=== PATIENT | female | born 1995 | race Caucasian/White ===

== ENCOUNTER 2018-11-07 17:11 | Inpatient (IN) | payer MEDICAID ==
[~2018-11-07] VITALS: Ht 149.9 cm; Wt 61.2 kg
[2018-11-07 18:00] VITALS: BP 97/55; PULSE 75; RESP 18
[2018-11-07] MEDS ORDERED: PREN-93 PO (18:00)
[2018-11-07 18:01] VITALS: Ht 149.9 cm; Wt 61.2 kg
--- NOTE | 2018-11-07 22:13 | HP ---
Date/Time of Note Date/Time of Note DATE: 11/07/18 TIME: 22:08 OB - History Hx of Present Free Text/Dictation 32 years old 3 para 2-0-0-2 with single intrauterine at 35 weeks and 2 days with a DOMINIQUE of 12/10/2018 referred the for further evaluation due to size less than date. She states good movement. She denies nausea, vomiting, shortness of breath, chest pain, headache, visual changes, vaginal bleeding or LOF. Estimated Due Date: Dec 10, 2018 : 3 Para: 2 Spontaneous : 0 Therapeutic : 0 Care: Good Care Ultrasounds: Normal mid trimester US Obstetrical Complications: None Medical Complications: None Past Family/Social History * Past Medical, Surgical, Family and Obstetric Histories reviewed from chart. Blood Type: O+ Rubella: immune RPR/VDRL: Negative HBsAG: Negative OB Admission Exam Vital Signs Vital Signs Vital Signs Date Temp Pulse Resp B/P (MAP) Pulse Ox O2 O2 Flow FiO2 Time Delivery Rate 11/07/18 98.5 75 18 97/55 (69) Room Air 18:00 Physical Exam HEENT: WNL Heart: Rhythm Normal Lungs: Clear Abdomen: WNL Extremities: Normal Membranes: Intact Heart Rate: 130's Accelerations: Accelerations Present Decelerations: No Decelerations Varibility: Moderate Contractions on Admission: None OB Assessment/Plan Other plan: 22 years old 3 para 2-0-0-2 with single intrauterine at 35 weeks and 2 days with IUGR. -FHR: No sign of metabolic acidosis- Category I -Continuous EFM, toco -CBC, blood type and screen -Ultrasound performed, EFW 2094 g -4 pounds 10 ounces, 5% -Betamethasone for lung maturity per protocol -Please see the orders -O+/Rubella: Immune -GBS done today -Perinatology consult MAHIN GONZALES Nov 07, 2018 22:13
[2018-11-07] MEDS ORDERED: ACETAMINOPHEN 325 MG TAB PO PRN (23:30)
--- NOTE | 2018-11-07 23:38 | TRIAGE ---
OB Triage Datetime Report Generated by CPN: 11/07/2018 23:38 Datetime: 11/07/2018 23:27 Labor Evaluation Monitor Mode: External Heart Rate Monitor Mode: External US Datetime: 11/07/2018 23:18 Pain Assessment Pain Scale: 0 Pain Presence: None/Denies Pain Type: N/A Datetime: 11/07/2018 22:22 Vaginal Exam Membrane Status: Intact Datetime: 11/07/2018 19:36 Pain Assessment Pain Scale: 0 Pain Presence: None/Denies Pain Type: N/A Datetime: 11/07/2018 19:07 EGA: 35.2 Datetime: 11/07/2018 17:51 Time of Arrival: 11/07/2018 17:01 EGA: 35.2 Arrived By: Ambulatory Arrived From: Office Chief Complaint: PT. SENT FROM CLINIC FOR SIZE<DATES Movement: Present Contractions: Denies/Absent Rupture of Membranes: Denies Vaginal Bleeding: None Vaginal Discharge: Denies Recent Sexual Intercouse: Denies Abdominal Trauma: Not Applicable Patient Complaints: None Time Provider Notified: 11/07/2018 17:55 Provider Notified: HADADIAN Initial Plan: BPP/EFW/NST Datetime: 11/07/2018 17:45 Labor Evaluation Monitor Mode: External Heart Rate Monitor Mode: External US
[2018-11-08] MEDS: BETAMET NA PHOS/AC(6 MG/ML) 2 ML INJ SYG IM SCH (01:38)
[2018-11-08] MEDS ORDERED: FER325 PO (01:54)
[2018-11-08] MEDS: DOCUSATE SODIUM 100 MG CAP PO SCH (09:05)
[2018-11-08] MEDS: PRENATAL VITAMIN PO SCH (09:05)
--- NOTE | 2018-11-08 15:29 | QN ---
Documentation Comment Patient admitted last night due to IUGR for perinatology consultation. Es timated weight less less than 5%. Doppler done. Diastolic flow noted. Umbilical artery Doppler reported normal. Patient status post betamethasone x1 next dose today at 130. Today patient reports mild pain with urination as well as itching. No leaking of fluid no vaginal bleeding. Urine suspicious for UTI. Urine was sent for culture and sensitivity. Physical examination External genitalia: No lesions in the inner side of the left labial minora multiple small in clusters appears to be consistent with genital warts. Sterile speculum examination. Frothy vaginal discharge noted. Wet mount obtained and was sent. Reported trichomonas. Abdomen: Soft, gravid, fundal height consider gestational age BPP yesterday normal. LETICIA 11.9 NST: Category 1 and appropriate for gestational age Occasional contractions noted on the monitor Assessment IUP at 35 weeks and 3 days Estimated weight less than 5 percentile Doppler of umbilical artery normal, status post 1 dose of steroid. Second dose will be completed today Awaiting perinatology consultation Genital lesions, appears consistent with Genital wart Vaginal discharge, Wet mount consistent with trichomonas Discussed in german language by RN about the abnormal lab. Discussed about treatment, consider single dose treatment. 2 Gram PO x 1 Partner advised to be tested since this is STD Urine to be sent for culture and sensitivity Advised partner been tested and gets treatment Full STD panel to be done today. JUSTINE ROMERO MD Nov 08, 2018 15:29
[2018-11-08] MEDS ORDERED: metroNIDAZOLE 500 MG TAB PO ONE (16:30)
[2018-11-08] MEDS: ACYCLOVIR 400 MG TAB PO SCH ×2 (17:14→20:53)
[2018-11-09] MEDS: BETAMET NA PHOS/AC(6 MG/ML) 2 ML INJ SYG IM SCH (01:35)
--- NOTE | 2018-11-09 02:11 | CONS ---
DATE OF ADMISSION: 11/07/2018 DATE OF CONSULTATION: 11/08/2018 TYPE OF CONSULTATION: Perinatology. HISTORY OF PRESENT ILLNESS: I am not really sure why I was consulted on this patient, but in summary , she is 35 weeks and 3 days with intrauterine growth restriction for the fetus. Also, there are radha e lesions on the vagina. Cultures for the HSV are pending. She was also diagnosed with Trichomonas. RECOMMENDATIONS: Essentially, umbilical artery Doppler now and if the heart tone is reassuring and umbilical artery is normal, she can be discharged home. She should be treated preemptively for the herpes. Follow up on her cultures and if the culture is negative, then it can be discontinued. However, if the suspicion is high I do recommend continuing with the treatment dose for the appropria te time of days and then continue with the prophylactic after her delivery. Delivery at 37 weeks. S he needs to have NST twice weekly, umbilical artery weekly, and obviously treat for Trichomonas. Dictated By: LUIS ALFREDO BELTRÁN/LANDRY Conf#: [id number] DID#: [id number]
[2018-11-09] MEDS: ACYCLOVIR 400 MG TAB PO SCH ×3 (08:48→21:05)
[2018-11-09] MEDS: DOCUSATE SODIUM 100 MG CAP PO SCH (08:48)
[2018-11-09] MEDS: PRENATAL VITAMIN PO SCH (08:49)
--- NOTE | 2018-11-09 12:36 | QN ---
Documentation Comment 34+wks GA With IUGR , NST reassuring [place] No CTXS Pelvic Deferred -->She can be discharged as per Perinatologist -->NST BPP twice weekly --->Follow up with provider JIMENA GONZALES M.D. Nov 09, 2018 12:36
--- NOTE | 2018-11-09 12:38 | DS ---
Date/Time of Note Date/Time of Note DATE: 11/09/18 TIME: 12:37 Discharge Summary Admission/Discharge Info Admit Date/Time Nov 07, 2018 at 21:55 Discharge Date/Time 11/09/2018 Discharge Diagnosis IUGR Patient Condition: Good Hospital Course uneventful Home Meds Reported Medications Ferrous Sulfate* (Ferrous Sulfate*) 325 Mg Tabec, 325 MG PO DAILY, TAB 11/08/18 Vit No.124/Iron/FA ( Vitamin Tablet) 1 Each Tablet, 1 EACH PO DAILY, TAB 11/07/18 Primary Care Provider Care Physician JIMENA Blanco M.D. Nov 09, 2018 12:37
--- NOTE | 2018-11-10 04:33 | PN ---
Date/Time of Note Date/Time of Note DATE: 11/10/18 TIME: 04:32 OB Subjective Subjective Subjective Patient seen and examined. She states good movement. She denies nausea, vomiting, shortness of breath, chest pain, abdominal pain, headache, visual changes, vaginal bleeding or LOF. OB Objective Objective Objective General: Patient appears well, alert and oriented, NAD, appropriate mood and affect ABD: gravid, soft, non-tender. Back: No CVA tenderness (B/L) LE: Mild edema. No clubbing, cyanosis, edema, thigh or calf tenderness bilaterally FHT: 135 bpm , moderate variability with acceleration, no deceleration-category I Contractions: None OB Assessment/Plan Other plan: 22 year-old G 3 para 2-0-0-2 with single intrauterine at 35 weeks and 5 days with IUGR, UTI and borderline amniotic fluid s/p receiving betamethasone x2 -FHR: No sign of metabolic acidosis- Category I. She had one deceleration yesterday at 10:30 AM, no further deceleration noted, rest of heart rate is category 1 -Continuous EFM, toco -Repeat urinalysis with 65 white BC, Ancef IV started -Ultrasound performed on 11/07/2018: EFW 2094 g -4 pounds 10 ounces, 5%, normal LETICIA and umbilical artery Doppler. Today's ultrasound with the LETICIA of 6.3. Repeat ultrasound tomorrow. -Please see the orders -O+/Rubella: Immune -Perinatology consult appreciated -Follow-up after having ultrasound today MAHIN GONZALES Nov 10, 2018 04:33
[2018-11-10] MEDS: LACTATED RINGER'S 1,000 ML IV SCH ×3 (04:45→23:03)
[2018-11-10] MEDS: CEFAZOLIN 2 GM/50 ML (PMX) 50 ML IVPB SCH ×3 (05:48→18:33)
[2018-11-10] MEDS: ACYCLOVIR 400 MG TAB PO SCH ×3 (09:20→20:58)
[2018-11-10] MEDS: PRENATAL VITAMIN PO SCH (09:20)
[2018-11-10] MEDS: DOCUSATE SODIUM 100 MG CAP PO SCH (09:20)
[2018-11-11] MEDS: CEFAZOLIN 2 GM/50 ML (PMX) 50 ML IVPB SCH ×4 (00:01→18:33)
[2018-11-11] MEDS: LACTATED RINGER'S 1,000 ML IV SCH ×3 (08:16→20:40)
[2018-11-11] MEDS: PRENATAL VITAMIN PO SCH (09:16)
[2018-11-11] MEDS: DOCUSATE SODIUM 100 MG CAP PO SCH (09:16)
[2018-11-11] MEDS: ACYCLOVIR 400 MG TAB PO SCH ×3 (09:16→21:16)
[2018-11-11] MEDS ORDERED: LIDOCAINE 2% (SDV) 5 ML INJ ONE (10:39)
--- NOTE | 2018-11-11 12:25 | QN ---
Documentation Comment 34+wks GA With IUGR , NST reassuring [place] No CTXS Pelvic Deferred -->Management as Per Private provider JIMENA GONZALES M.D. Nov 11, 2018 12:25
[2018-11-12] MEDS: CEFAZOLIN 2 GM/50 ML (PMX) 50 ML IVPB SCH ×4 (00:27→18:00)
[2018-11-12] MEDS: LACTATED RINGER'S 1,000 ML IV SCH ×3 (01:56→19:59)
[2018-11-12] MEDS: DOCUSATE SODIUM 100 MG CAP PO SCH (08:59)
[2018-11-12] MEDS: ACYCLOVIR 400 MG TAB PO SCH ×3 (08:59→20:49)
[2018-11-12] MEDS: PRENATAL VITAMIN PO SCH (08:59)
--- NOTE | 2018-11-12 14:14 | PN ---
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 No complaints. No VB. No LOF. BPP 12/06 today Assessment/plan: 1. Intrauterine growth restriction-status post corticosteroids. Doppler umbilical arteries within normal limits today. Biweekly NST/BPP. hydrate. ROM to r/o pprom. No indication for delivery. may discharge to home with repeat BPP in 24 hours if not pprom. Delivery at 37 weeks 2. HSV-primary lesion noted October 2018. HSV positive culture 11/08/18. Patient is currently receiving acyclovir. counseled in clinic that should she have any active lesions or prodromal symptoms she will need a section. 3. Urine leukocytes/esterase-urine culture 4. Anemia of -ferrous sulfate 5. h/o thrombocytopenia-cbc MILESTONE,MANSOOR VILLARREAL Nov 12, 2018 14:14
[2018-11-12] MEDS: FERROUS SULFATE (EC) 325 MG TAB PO SCH (15:10)
[2018-11-13] MEDS: CEFAZOLIN 2 GM/50 ML (PMX) 50 ML IVPB SCH ×2 (00:15→06:11)
[2018-11-13] MEDS: LACTATED RINGER'S 1,000 ML IV SCH (04:33)
[2018-11-13] MEDS: PRENATAL VITAMIN PO SCH (10:07)
[2018-11-13] MEDS: DOCUSATE SODIUM 100 MG CAP PO SCH (10:07)
[2018-11-13] MEDS: FERROUS SULFATE (EC) 325 MG TAB PO SCH (10:07)
[2018-11-13] MEDS: ACYCLOVIR 400 MG TAB PO SCH ×3 (10:07→21:34)
[2018-11-13] MEDS ORDERED: LACTATED RINGER'S 1,000 ML IV SCH (10:30)
--- NOTE | 2018-11-13 13:17 | PN ---
Date/Time of Note Date/Time of Note DATE: 11/13/18 TIME: 13:17 MAHIN GONZALES Nov 13, 2018 13:17
[2018-11-14] MEDS: FERROUS SULFATE (EC) 325 MG TAB PO SCH (08:58)
[2018-11-14] MEDS: PRENATAL VITAMIN PO SCH (08:58)
[2018-11-14] MEDS: DOCUSATE SODIUM 100 MG CAP PO SCH (08:58)
[2018-11-14] MEDS: ACYCLOVIR 400 MG TAB PO SCH ×3 (09:00→20:47)
--- NOTE | 2018-11-14 17:45 | PN ---
Date/Time of Note Date/Time of Note DATE: 11/14/18 TIME: 17:31 OB Subjective Subjective Subjective Patient seen and examined. She states good movement. She denies nausea, vomiting, shortness of breath, chest pain, abdominal pain, headache, visual changes, vaginal bleeding or LOF. OB Objective Objective Objective General: Patient appears well, alert and oriented, NAD, appropriate mood and affect ABD: gravid, soft, non-tender. Back: No CVA tenderness (B/L) LE: Mild edema. No clubbing, cyanosis, edema, thigh or calf tenderness bilaterally FHT: 125 bpm , moderate variability with acceleration, no deceleration-category I Contractions: None OB Assessment/Plan Other plan: 22 year-old G 3 para 2-0-0-2 with single intrauterine at 36 weeks and 2 days with IUGR and borderline amniotic fluid -FHR: No sign of metabolic acidosis- Category I -Continuous EFM, toco -Ultrasound performed on 11/07/2018: EFW 2094 g -4 pounds 10 ounces, 5%, normal umbilical artery Doppler. 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 HSV IgM , I and II ordered 3) BV: She was treated metronidazole 2 g x 1 4) UA with 68 white BC urine culture was positive for Gardnerella. She was treated with Ancef until we receive the results of urine culture. Ancef discontinued. Urinalysis with straight cath ordered MAHIN GONZALES Nov 14, 2018 17:45
[2018-11-15] MEDS: ACYCLOVIR 400 MG TAB PO SCH ×3 (08:31→22:00)
[2018-11-15] MEDS: FERROUS SULFATE (EC) 325 MG TAB PO SCH (08:31)
[2018-11-15] MEDS: PRENATAL VITAMIN PO SCH (08:31)
[2018-11-15] MEDS: DOCUSATE SODIUM 100 MG CAP PO SCH (08:31)
--- NOTE | 2018-11-15 14:36 | QN ---
Documentation Comment Patient comfortable. Denies any leaking of fluid, vaginal bleeding, decreased movement or uterine contractions. Physical examination: General appears alert and oriented x4 does not appear to be in any acute distress Abdomen: Soft, gravid, fundal height correlate with gestational age NST: Category 1 and appropriate for gestational age Assessment 22 year-old G 3 para 2-0-0-2 with single intrauterine at 36 weeks and 3 days with IUGR and borderline amniotic fluid -Ultrasound performed on 11/07/2018: EFW 2094 g -4 pounds 10 ounces, 5%, normal umbilical artery Doppler. 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 HSV IgM , I and II ordered, Pending 3) BV: She was treated metronidazole 2 g x 1 Follow-up with the results of HSV continue inpatient management due to borderline low oligo and IUGR, status post steroid. Plan for induction at 37 weeks Follow-up with HSV antibody, if positive consider starting on antiviral therapy, acyclovir until delivery JUSTINE ROMERO MD Nov 15, 2018 14:35
[2018-11-16] MEDS: FERROUS SULFATE (EC) 325 MG TAB PO SCH (07:56)
[2018-11-16] MEDS: ACYCLOVIR 400 MG TAB PO SCH ×3 (07:56→21:03)
[2018-11-16] MEDS: DOCUSATE SODIUM 100 MG CAP PO SCH (07:56)
[2018-11-16] MEDS: PRENATAL VITAMIN PO SCH (07:56)
--- NOTE | 2018-11-16 23:46 | QN ---
Documentation Comment 22y.o at 36w4d low LETICIA IUGR last LETICIA on 11/12/18 6.8 S/D ratio 2.4-2.8 EFW 2094 5% on ancyclovir since 11/08/18 for herpes I according to record blister on genitalis no lesion seen on visual exam today Plan deliver at 37w mode of delivery will be decided accordingly NITO ORTIZ MD Nov 16, 2018 23:46
[2018-11-17] MEDS: DOCUSATE SODIUM 100 MG CAP PO SCH (08:58)
[2018-11-17] MEDS: ACYCLOVIR 400 MG TAB PO SCH ×3 (08:58→20:56)
[2018-11-17] MEDS: PRENATAL VITAMIN PO SCH (08:58)
[2018-11-17] MEDS: FERROUS SULFATE (EC) 325 MG TAB PO SCH (08:58)
--- NOTE | 2018-11-17 13:43 | PN ---
Date/Time of Note Date/Time of Note DATE: 11/17/18 TIME: 13:40 OB Subjective Subjective Subjective Asked by RN about delivery plan. 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 Per ACOG, delivery is indicated if the patient demonstrates lesions or prodromal symptoms (burning, pain) at the time of delivery. SHANEL VYAS MD Nov 17, 2018 13:43
[2018-11-18] MEDS: DOCUSATE SODIUM 100 MG CAP PO SCH (09:24)
[2018-11-18] MEDS: ACYCLOVIR 400 MG TAB PO SCH ×3 (09:24→21:33)
[2018-11-18] MEDS: FERROUS SULFATE (EC) 325 MG TAB PO SCH (09:24)
[2018-11-18] MEDS: PRENATAL VITAMIN PO SCH (09:24)
--- NOTE | 2018-11-18 14:11 | QN ---
Documentation Comment Late entry note for 11/17/2018 36+ wks GA with IUGR (5%) and low LETICIA = 8.6 cm No complaints vs stable afebrile ab gravid nt extremity no edema no calf tenderness fhr cat 1 toco no ctx A/P s/p sterids for lung maturity Plan for delivery at 37 wks Ga per perinatologist recommendation LETICIA JIMÉNEZ MD Nov 18, 2018 14:11
--- NOTE | 2018-11-18 19:12 | PN ---
Date/Time of Note Date/Time of Note DATE: 11/18/18 TIME: 19:07 OB Subjective Subjective Subjective Patient seen and examined. She states good movement. She denies nausea, vomiting, shortness of breath, chest pain, abdominal pain, headache, visual changes, vaginal bleeding. OB Objective Objective Objective General: Patient appears well, alert and oriented, NAD, appropriate mood and affect ABD: gravid, soft, non-tender. Back: No CVA tenderness (B/L) LE: Mild edema. No clubbing, cyanosis, edema, thigh or calf tenderness bilaterally FHT: 130 bpm , moderate variability with acceleration, no deceleration-category I Contractions: None OB Assessment/Plan Other plan: 22 year-old G 3 para 2-0-0-2 with single intrauterine at 36 weeks and 6 days with IUGR and borderline amniotic fluid -FHR: She had few variable deceleration early on today. Currently heart rate is category I -Continuous EFM, toco -Ultrasound performed on 11/07/2018: EFW 2094 g -4 pounds 10 ounces, 5%, normal umbilical artery Doppler. -LETICIA: 6.3, then 6.8, last ultrasound 8.3 -s/p corticosteroid -Please see the orders -O+/Rubella: Immune -She has received Tdap vaccine -Perinatology consult appreciated, delivery at 37 weeks 2) vulvar lesion: HSV-I IgG positive,HSV-II IgG and HSV IgM I. HM PP negative. 3) BV: She was treated witj metronidazole 2 g x 1 MAHIN GONZALES Nov 18, 2018 19:11
[2018-11-19] MEDS: FERROUS SULFATE (EC) 325 MG TAB PO SCH (09:45)
[2018-11-19] MEDS: DOCUSATE SODIUM 100 MG CAP PO SCH (09:45)
[2018-11-19] MEDS: PRENATAL VITAMIN PO SCH (09:45)
--- NOTE | 2018-11-19 10:31 | PN ---
Date/Time of Note Date/Time of Note DATE: 11/19/18 TIME: 10:28 OB Subjective Subjective Subjective 22-year-old G3, P2 at 37 weeks gestation. BPP 12/06 Assessment/plan: 1. Intrauterine growth restriction-s/p corticosteroids. IOL today. 2. HSV-primary lesion noted October 2018. HSV positive culture 11/08/18. No lesions noted. 3. Anemia of -ferrous sulfate MILESTONE,MANSOOR VILLARREAL Nov 19, 2018 10:31
--- NOTE | 2018-11-19 10:33 | PN ---
Date/Time of Note Date/Time of Note DATE: 11/19/18 TIME: 10:32 OB Subjective Subjective Subjective 22-year-old G3, P2 at 37 weeks gestation. BPP 12/06 Assessment/plan: 1. Intrauterine growth restriction-s/p corticosteroids. IOL today per mfm. 2. HSV-primary lesion noted October 2018. HSV positive culture 11/08/18. No lesions noted. 3. Anemia of -ferrous sulfate 5. h/o thrombocytopenia-cbc MILESTONE,MANSOOR VILLARREAL Nov 19, 2018 10:33
[2018-11-19] MEDS: ACYCLOVIR 400 MG TAB PO SCH (15:04)
--- NOTE | 2018-11-19 17:54 | DS ---
Date/Time of Note Date/Time of Note DATE: 11/19/18 TIME: 17:52 Obstetrical Discharge Record Final Diagnosis Final Diagnosis: Term not delivered Other Final Diagnosis Admitted on 11/07/2018 Blood Type: O+ Rubella: immune RPR/VDRL: Negative HBsAG: Negative H/H 10.9/32.3 1. Intrauterine growth [id number]-old -0-0-2 presented at 35 weeks and 2 days with an DOMINIQUE of 12/10/2018 for size less than dates. She was noted to have intrauterine growth restriction with LETICIA less than 8 cm. She was seen by the maternal- medicine physician. Received corticosteroids. She also received a perinatology consult. To discharge her biophysical profile was 8 out of 8 normal. Follow up on Monday and Monday for NST. Discussed with MFM. 2. 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 She received antivirals. She received a second dose of acyclovir to be completed at home. 3. Anemia of -H/H stable. Ferrous sulfate. Condition on Discharge Physical Assessment Patient Condition: Stable MILESTONE,MANSOOR VILLARREAL Nov 19, 2018 17:54
[2018-11-19] MEDS ORDERED: FER325 PO (18:59)
[2018-11-19] MEDS ORDERED: ACYC400T2 PO (18:59)
== END 2018-11-19 19:00 | disposition home or self-care (01) | DRG 833 ==
LOC: OBT 17:11 → L-D 17:17 → OBT 21:55 → L-D 11-08 01:28 → PP1 11-14 14:01 → L-D 11-19 10:40
PROVIDERS: ADMIT Obstetrics & Gynecology; ATTEND Obstetrics & Gynecology
DX: O36.5930 Maternal care for other known or suspected poor fetal growth, third trimester, not applicable or unspecified (principal); O99.013 Anemia complicating pregnancy, third trimester; Z3A.35 35 weeks gestation of pregnancy
CPT/HCPCS: 76815; 76818; 76820; 80307; 81001; 81003; 84112; 85025; 86644; 86645; 86692; 86694; 86695; 86696; 86703; 86762; 86777; 86778; 87070; 87086; 87210; 87255; 87591; G0463; J0690; J0702; J7120

== ENCOUNTER 2018-11-22 08:54 | Inpatient (IN) | payer MEDICAID ==
[~2018-11-22] VITALS: Ht 144.8 cm; Wt 61.9 kg
[~2018-11-22 08:54] MED LIST: ACYC400T2 PO; FER325 PO; PREN-93 PO
[2018-11-22 09:36] VITALS: Ht 144.8 cm; Wt 61.9 kg
[2018-11-22 09:37] VITALS: BP 102/64; PULSE 75; RESP 18
[2018-11-22] MEDS ORDERED: CARBOPROST 250 MCG INJ IM PRN (13:00)
[2018-11-22] MEDS ORDERED: MISOPROSTOL 200 MCG TAB PR PRN (13:00)
[2018-11-22] MEDS ORDERED: OXYTOCIN 30 UNITS/LR 500 ML IV SCH ×3 (13:00)
[2018-11-22] MEDS ORDERED: OXYTOCIN 30 UNITS/LR 500 ML IV PRN (13:00)
[2018-11-22] MEDS ORDERED: IBUPROFEN 600 MG TAB PO PRN (13:00)
[2018-11-22] MEDS ORDERED: LIDOCAINE 1% (MPF) 30 ML INJ INJ PRN (13:00)
[2018-11-22] MEDS ORDERED: METHYLERGONOVINE 0.2 MG INJ IM PRN (13:00)
[2018-11-22] MEDS ORDERED: BUTORPHANOL 2 MG INJ IV PRN (13:00)
[2018-11-22] MEDS: LACTATED RINGER'S 1,000 ML IV SCH ×2 (15:50→20:54)
[2018-11-22] MEDS: MISOPROSTOL 50 MCG CAPSULE PO SCH ×2 (16:00→21:39)
[2018-11-22] MEDS ORDERED: FENTAnyl 50 MCG/ML VIAL ONE ×2 (16:17→16:58)
[2018-11-22] MEDS ORDERED: ONDANSETRON 4 MG INJ ONE (16:26)
[2018-11-22] MEDS ORDERED: METOCLOPRAMIDE 10 MG INJ ONE (16:26)
[2018-11-22] MEDS ORDERED: FAMOTIDINE 20 MG INJ ONE (16:46)
[2018-11-22] MEDS ORDERED: SUGAMMADEX SODIUM 200 MG/2 ML VIAL IV ONE (16:50)
[2018-11-22] MEDS ORDERED: CEFAZOLIN 1 GM INJ ONE (16:50)
--- NOTE | 2018-11-22 18:22 | HP ---
Date/Time of Note Date/Time of Note DATE: 11/22/18 TIME: 18:16 OB - History Hx of Present Free Text/Dictation November 22, 2018 : 3 Para: 2 Care: Good Care Other Concerns: 22-year-old G3, P2 with IUP at 37 weeks and 3 days, IUGR and borderline oligohydramnios presented to triage for NST and biophysical profile. Repeat ultrasound showed still borderline LETICIA. Patient was candidate for induction of labor per recommendation of perinatologist. Patient had a history of genital lesions questionable for HSV as well as history of trichomonas vaginalis, status post treatment. Currently on suppressive therapy with acyclovir. She denies any symptoms. Denies any genital lesion, burning, irritation. Status post treatment for Trichomonas vaginalis. Denies any symptoms. Still currently taking prophylactic treatment with acyclovir 3 times a day. Per recommendation by perinatologist recommended to have vaginal delivery if does not have any genital lesion or symptoms. Past Family/Social History * Past Medical, Surgical, Family and Obstetric Histories reviewed from chart. Blood Type: O+ Rubella: immune RPR/VDRL: Negative GBS Status: Negative HBsAG: Negative OB Admission Exam Vital Signs Vital Signs Vital Signs Date Temp Pulse Resp B/P (MAP) Pulse Ox O2 O2 Flow FiO2 Time Delivery Rate 11/22/18 98.3 75 18 102/64 09:37 (77) Physical Exam HEENT: WNL Lungs: Clear Abdomen: WNL Extremities: Normal Cervical Dilatation: 1cm Effacement: 50% Station: -2 Membranes: Intact Heart Rate: 130's Accelerations: Accelerations Present Decelerations: Variable Decelerations Varibility: Moderate Contractions on Admission: >10 Minutes Apart Intensity: Mild Last 72 hourBlood Glucose PROCEDURE: US Obstetrical, limited CLINICAL INDICATION: IUGR, EFW follow up, LETICIA TECHNIQUE: Multiple real-time images were acquired of the patient's maternal abdomen utilizing a curved array transducer. COMPARISON: 11/19/2089 and 11/07/2018 FINDINGS: There is a single live intrauterine fetus positioned cephalic. The placenta is implanted fundal posteriorly and is grade II. There is no placenta previa or abruptio evident. The amniotic fluid index measures 6.1 cm. Doppler of the umbilical artery demonstrates an S/D ratio of 3.0 proximally, 2.2 at the midportion and 2.4 distally. The heart rate is 150 beats per minute. Measurements: BPD: 8.66 cm, corresponds to a age of 35 weeks 0 days Head circumference: 30.28 cm, corresponds to a age of 33 weeks 4 days Abdominal circumference: 31.32 cm, corresponds to a age of 35 weeks 2 days Femoral length: 6.88 cm, corresponds to a age of 35 weeks 2 days Average age by ultrasound: 34 weeks 6 days plus or minus 2 weeks 3 days Estimated weight: 2583 g plus or minus 388 g. The EFW falls at 6%. IMPRESSION: 1. Single live intrauterine fetus, cephalic presentation, unchanged. The heart rate is 150 bpm. 2. Posterior fundal placenta, grade 2, no previa or abruptio is evident. 3. Amniotic fluid index: 6.1 cm compatible with oligohydramnios. 4. Umbilical artery systolic/diastolic ratios: Proximally - 3.0, mid - 2.2, distally - 2.4. 5. Estimated age by ultrasound: 34-week 6 days plus or minus 2 weeks 3 d ays. The estimated weight is 2583 g. The EFW falls at 6%. There has been adequate growth since the previous sonogram of 11/07/2018. The estimated date of delivery based on today's sonogram is 12/28/2018. Last 72 hours Lab Results CBC & BMP 11/22/18 14:20 OB Assessment/Plan Other Assessment: IUP at 37 weeks and 3 days IUGR Borderline oligohydramnios Per recommendation by perinatologist plan for delivery with induction Patient will be admitted for Cytotec induction History of genital lesion, questionable for possible HSV. Status post treatment for HSV and currently on prophylactic treatment. Denies any symptoms. Exam did not show any evidence of genital lesion. Per recommendation by perinatologist can try vaginal delivery if she does not have any symptoms or lesion. GBS negative Patient will be admitted for induction Start Cytotec per protocol Anticipate plan of care discussed with patient and with JUSTINE LUIS MD Nov 22, 2018 18:22
[2018-11-23] MEDS: MISOPROSTOL 50 MCG CAPSULE PO SCH ×5 (05:00→17:00)
[2018-11-23] MEDS: LACTATED RINGER'S 1,000 ML IV SCH ×3 (05:35→20:58)
[2018-11-23] MEDS: ACYCLOVIR 400 MG TAB PO SCH ×3 (09:09→20:56)
[2018-11-24] MEDS: LACTATED RINGER'S 1,000 ML IV SCH ×2 (08:19→16:59)
[2018-11-24] MEDS: ACYCLOVIR 400 MG TAB PO SCH ×3 (09:04→21:29)
[2018-11-25] MEDS: MISOPROSTOL 50 MCG CAPSULE PO SCH ×4 (01:00→21:36)
[2018-11-25] MEDS: LACTATED RINGER'S 1,000 ML IV SCH ×3 (01:01→17:19)
[2018-11-25] MEDS: ACYCLOVIR 400 MG TAB PO SCH ×3 (09:07→17:20)
--- NOTE | 2018-11-25 15:09 | QN ---
Documentation Comment 37+wks GA with Low LETICIA and Oligohydramnios NST reassuring [place] Occasional CTXs --->Continue Induction --->close Monitoring JIMENA GONZALES M.D. Nov 25, 2018 15:09
[2018-11-26] MEDS: MISOPROSTOL 50 MCG CAPSULE PO SCH ×3 (01:39→11:22)
[2018-11-26] MEDS: LACTATED RINGER'S 1,000 ML IV SCH ×3 (01:39→16:44)
[2018-11-26] MEDS: ACYCLOVIR 400 MG TAB PO SCH ×3 (09:11→21:05)
--- NOTE | 2018-11-26 11:06 | PN ---
Date/Time of Note Date/Time of Note DATE: 11/26/18 TIME: 11:06 OB Subjective Subjective Subjective 22-year-old G3, P2 at 38 weeks gestation for induction of labor. DOMINIQUE 12/10/18. 102/64 hr 77 ABD gravid EXT NTTP CERVIX No lesions BPP 12/0611/25/18 1. Intrauterine growth restrictioncontinue induction. T&S. 2. HSVcultures from 11/19/2018-Cervical exam and vaginal exam without evidence of lesions. EFM 145/moderate variability/positive accelerations/intermittent variable decelerations/ Tocometer irregular contractions Machine Fitter ID [id number] 3. Anemia-ferrou sulfate MILESTONE,MANSOOR VILLARREAL Nov 26, 2018 11:06
[2018-11-26] MEDS ORDERED: LACTATED RINGER'S 1,000 ML IV ONE (16:00)
[2018-11-27] MEDS: LACTATED RINGER'S 1,000 ML IV SCH (00:12)
[2018-11-27] MEDS ORDERED: LACTATED RINGER'S 1,000 ML IV PRN (01:36)
[2018-11-27] MEDS ORDERED: FENTAnyl 2MCG/ML-ROPIV 0.2% 100 ML ONE (02:43)
[2018-11-27] MEDS ORDERED: OXYTOCIN 30 UNITS/LR 500 ML IV SCH (03:46)
--- NOTE | 2018-11-27 03:46 | LDN ---
Date/Time of Note Date/Time of Note DATE: 11/27/18 TIME: 03:42 Delivery Summary BOA immediately after the epidural of a viable female infant weighing 2560 grams or 5# 10 oz, 17" long, and with Apgars of 8/9. Weeks of Gestation 38w 1d Placenta Delivered: Spontaneously Meconium: none Episiotomy: No Perineal laceration: 1 Laceration repair: Small 1st degree perineal laceration repaired with 3-0 chromic. Anesthesia type: Epidural Estimated blood loss: 350 (Uterus was boggy after delivery; pt got Cytotec 800 mcg, methergine and a freash IV bag of Pitocin.) Sponge & Needle done & correct: Yes All needle counts correct: Yes Any foreign bodies felt in the: No (vagina) Infant Delivery Information Sex Infant Sex: female Apgars 1 Minute: 8 5 Minute: 9 Suctioning Nose & mouth suctioned at meliton: Yes Delee suction performed: No Umbilical Cord Umbilical cord with: 3 Vessels Cord presentations: no nuchal cord Cord Blood was obtained: Yes Mother & Baby Disposition Disposition Mom & Baby to Maternity; Good: Yes Baby to NICU: No COREEN BANERJEE MD Nov 27, 2018 03:46
[2018-11-27] MEDS ORDERED: LANOLIN HPA 1 PKT TOP PRN (04:00)
[2018-11-27] MEDS ORDERED: CARBOPROST 250 MCG INJ IM PRN (04:00)
[2018-11-27] MEDS ORDERED: METHYLERGONOVINE 0.2 MG INJ IM PRN (04:00)
[2018-11-27] MEDS ORDERED: MISOPROSTOL 200 MCG TAB PR PRN (04:00)
[2018-11-27] MEDS ORDERED: OXYTOCIN 30 UNITS/LR 500 ML IV PRN (04:00)
[2018-11-27] MEDS ORDERED: HYDROCODONE/APAP (5/325) TAB PO PRN (04:00)
--- NOTE | 2018-11-27 04:03 | PREAC ---
Date/Time of Note Date/Time of Note DATE: 11/27/18 TIME: 04:01 Anesthesia Eval and Record Evaluation Time Pre-Procedure Interview DATE: 11/27/18 TIME: 04:01 Age 22 Sex female NPO: 8 hrs Preoperative diagnosis IUP Planned procedure L&D Epidural Past Medical History Past Medical History: Includes : : Surgery & Anesthesia Issues No known issue Meds Anticoagulation: No Beta Reji within 24 hr: No Reason Beta Reji not given: Pt. not on B-Reji Active Scripts Ferrous Sulfate* (Ferrous Sulfate*) 325 Mg Tabec, 325 MG PO DAILY for 30 Days, TAB Prov:MANSOOR GHOSH MD 11/19/18 Acyclovir* (Acyclovir*) 400 Mg Tablet, 400 MG PO TID for 7 Days, TAB Prov:MANSOOR GHOSH MD 11/19/18 Reported Medications Vit No.124/Iron/FA ( Vitamin Tablet) 1 Each Tablet, 1 EACH PO DAILY, TAB 11/07/18 Current Medications Oxytocin/Lactated Ringer's 500 ml @ 50 mls/hr Q10H IV ; Start 11/27/18 at 03:46; Stop 11/28/18 at 09:45 Lactated Ringer's 1,000 ml @ 125 mls/hr Q8H IV* ; Start 11/27/18 at 03:46 Ibuprofen (Motrin) 600 mg Q6 PO ; Start 11/27/18 at 06:00 Acetaminophen/ Hydrocodone Bitart (Dorris (5/325)) 1 tab Q4H PRN PO .PAIN 1-5; Start 11/27/18 at 04:00 Lanolin (Lanolin Hpa) 1 applic BEDSIDE MEDICATION PRN TOP .NIPPLES; Start 11/27/18 at 04:00 Diphtheria/ Tetanus/Acell Pertussis (Adacel) 0.5 ml ONCE ONCE IM* ; Start 11/29/18 at 09:00; Stop 11/29/18 at 09:01 Oxytocin/Lactated Ringer's 500 ml @ 0 mls/hr ONCE PRN IV .VAGINAL BLEEDING; Start 11/27/18 at 04:00 Methylergonovine Maleate (Methergine) 0.2 mg ONCE PRN IM .VAGINAL BLEEDING; Start 11/27/18 at 04:00 Carboprost Tromethamine (Hemabate) 250 mcg ONCE PRN IM .VAGINAL BLEEDING; Start 11/27/18 at 04:00 Misoprostol (Cytotec) 1,000 mcg ONCE PRN MD .VAGINAL BLEEDING; Start 11/27/18 at 04:00 Acyclovir (Zovirax) 400 mg TID PO ; Start 11/27/18 at 09:00; Status UNV Meds reviewed: Yes Allergies Coded Allergies: No Known Allergy (Unverified , 11/08/18) Allergies Reviewed: Yes Labs/Studies Labs Reviewed: Reviewed by anesthesiologist Blood Bank Test 11/26/18 13:33 Blood Type O POSITIVE Rh Immune Globulin Candidate NO test: Positive Studies: ECG Pre-procedure Exam Last vitals BP:119/67, P;88, Spo2:100%, T:98,8 Airway: Adequate mouth opening, Adequate thyromental dist Mallampati: Mallampati II Teeth: Normal Lung: Normal Heart: Normal ASA Physical Status ASA physical status: 2 Emergency: None Planned Anesthetic Neuraxial: Epidural Pre-operative Attestations Prior to commencing anesthesia and surgery, the patient was re-evaluated, there was verification of: *The patient's identity *The results of appropriate recent lab work and preoperative vital signs *The above evaluation not changing prior to induction *Anesthetic plan, risk benefits, alternative and complications discussed with patient/family; questions answered; patient/family understands, accepts and wishes to proceed. EDENILSON SALINAS MD Nov 27, 2018 04:03
--- NOTE | 2018-11-27 04:07 | PAC ---
Date/Time of Note Date/Time of Note DATE: 11/27/18 TIME: 04:07 Post-Anesthesia Notes Post-Anesthesia Note Activity: WNL Respiratory function: WNL Cardiovascular function: WNL Mental status: Baseline Pain reasonably controlled: Yes Hydration appropriate: Yes Nausea/Vomiting absent: Yes Comments BP:112/56, P:78, Spo2:100%, T:98,8 EDENILSON SALINAS MD Nov 27, 2018 04:07
[2018-11-27] MEDS ORDERED: ONDANSETRON 4 MG INJ IV PRN (04:30)
[2018-11-27] MEDS ORDERED: FENTAnyl 2MCG/ML-ROPIV 0.2% 100 ML BAG EPI SCH (04:30)
[2018-11-27] MEDS ORDERED: MEPERIDINE 25 MG INJ IV ONE (04:30)
[2018-11-27] MEDS ORDERED: DIPHENHYDRAMINE 50 MG INJ IV PRN (04:30)
[2018-11-27] MEDS ORDERED: NALOXONE (0.4 MG/ML) INJ IV PRN (04:30)
[2018-11-27] MEDS: LACTATED RINGER'S 1,000 ML IV* SCH ×2 (06:42→11:46)
[2018-11-27 06:45] VITALS: BP 109/62; PULSE 72; RESP 18
[2018-11-27] MEDS: IBUPROFEN 600 MG TAB PO SCH ×3 (06:46→18:13)
[2018-11-27 08:00] VITALS: BP 99/57; PULSE 73; RESP 17
[2018-11-27] MEDS: ACYCLOVIR 400 MG TAB PO SCH ×3 (09:45→20:59)
[2018-11-27 12:00] VITALS: BP 83/49; PULSE 77; RESP 16
[2018-11-27 16:00] VITALS: BP 89/53; PULSE 87; RESP 17
--- NOTE | 2018-11-27 19:07 | PN ---
Date/Time of Note Date/Time of Note DATE: 11/27/18 TIME: 19:07 OB Subjective Subjective Subjective PPD# 1 Patient is doing well. She denies nausea, vomiting, shortness of breath, chest pain, headache. She has been ambulating without difficulty, tolerating regular diet. Pain is well controlled on current medications OB Objective Objective Objective VS - Last 72 Hours, by Label Date Temp Pulse Resp B/P (MAP) Pulse Ox O2 O2 Flow FiO2 Time Delivery Rate 11/27/18 98.3 87 17 89/53 (65) Room Air 16:00 11/27/18 98.3 77 16 83/49 (60) 12:00 11/27/18 98.4 73 17 99/57 (71) Room Air 08:00 11/27/18 98.1 72 18 109/62 Room Air 06:45 (78) General: AAO X 3, comfortable, NAD, appropriate mood and affect. ABD: +BS. Soft, non-tender. Uterus 2 cm below umbilicus Flank: No CVA tenderness (B/L) LE: Mild edema. No clubbing, cyanosis, thigh or calf tenderness (B/L). Homans 'sign is negative OB Assessment/Plan Other plan: 22 years old 3 para 3-0-0-3 s/p normal vaginal delivery at 38 weeks and 1 day. PPD#1 - AF, VSS - Baby is doing well, at bed side. She is bonding well - Contraception methods with R/B/A/FR discussed - Continue care - Discharge home tomorrow - Rx and instruction given - Follow up in 2 and 6 weeks at clinic 2. Anemia hemoglobin 8.1, hematocrit 24.4: Recommend ferrous sulfate 325 mg 3 times daily for 2 months and then 1 tablet p.o. daily for 3 months 3. Gestational thrombocytopenia: Platelet 124, follow-up in clinic MAHIN GONZALES Nov 27, 2018 19:07
[2018-11-27 20:00] VITALS: BP 99/65; PULSE 75; RESP 16
[2018-11-28] MEDS: IBUPROFEN 600 MG TAB PO SCH ×5 (01:15→23:45)
[2018-11-28 04:00] VITALS: BP 100/65; PULSE 56; RESP 18
[2018-11-28 08:00] VITALS: BP 88/55; PULSE 72; RESP 16
[2018-11-28] MEDS: ACYCLOVIR 400 MG TAB PO SCH ×3 (08:50→22:32)
--- NOTE | 2018-11-28 10:02 | DS ---
Date/Time of Note Date/Time of Note DATE: 11/28/18 TIME: 10:02 Obstetrical Discharge Record Final Diagnosis Final Diagnosis: Term delivered Other Final Diagnosis 22 years old 3 para 3-0-0-3 s/p normal vaginal delivery at 38 weeks and 1 day. PPD#1 - AF, VSS - Baby is doing well, at bed side. She is bonding well - Contraception methods with R/B/A/FR discussed - Continue care - Discharge home tomorrow - Rx and instruction given - Follow up in 2 and 6 weeks at clinic 2. Anemia hemoglobin 8.1, hematocrit 24.4: Recommend ferrous sulfate 325 mg 3 times daily for 2 months and then 1 tablet p.o. daily for 3 months 3. Gestational thrombocytopenia: Platelet 124, follow-up in clinic Condition on Discharge Physical Assessment Last Vitals: Vital Signs Date Temp Pulse Resp B/P (MAP) Pulse Ox O2 O2 Flow FiO2 Time Delivery Rate 11/28/18 97.9 72 16 88/55 (66) Room Air 08:00 Voiding: Yes Bowel Movement: Yes Breast: Soft, non-tender Fundus: Firm Calf Tenderness: No Patient Condition: Stable MAHIN GONZALES Nov 28, 2018 10:02
[2018-11-28] MEDS ORDERED: BENZOCAINE 20% 56 ML SPRAY TOP PRN (12:30)
[2018-11-28] MEDS ORDERED: WITCH HAZEL/GLYCERIN PAD PR PRN (12:30)
[2018-11-28] MEDS: FERROUS SULFATE (EC) 325 MG TAB PO SCH ×2 (13:36→22:29)
[2018-11-28] MEDS: PRENATAL VITAMIN PO SCH (13:36)
[2018-11-28] MEDS: ASCORBIC ACID 500 MG TAB PO SCH ×2 (15:08→22:32)
[2018-11-28 16:00] VITALS: BP 104/62; PULSE 91; RESP 17
[2018-11-28 20:00] VITALS: BP 105/51; PULSE 78; RESP 16
[2018-11-29 04:00] VITALS: BP 93/53; PULSE 94; RESP 20
[2018-11-29] MEDS: IBUPROFEN 600 MG TAB PO SCH ×2 (06:40→12:39)
[2018-11-29] MEDS: FERROUS SULFATE (EC) 325 MG TAB PO SCH (08:49)
[2018-11-29] MEDS: ASCORBIC ACID 500 MG TAB PO SCH (08:49)
[2018-11-29] MEDS: PRENATAL VITAMIN PO SCH (08:49)
[2018-11-29] MEDS: ACYCLOVIR 400 MG TAB PO SCH ×2 (08:49→12:39)
[2018-11-29 08:50] VITALS: BP 83/53; PULSE 70; RESP 16
[2018-11-29] MEDS ORDERED: DIPHTH/TET/ACEL PERTUSS (ADULT) 0.5 ML VIAL IM* ONE (09:00)
== END 2018-11-29 15:51 | disposition home or self-care (01) | DRG 806 ==
LOC: OBT 08:54 → L-D 08:55 → OBT 13:00 → L-D 15:05 → PP1 11-27 06:12
PROVIDERS: ADMIT Obstetrics & Gynecology; ATTEND Obstetrics & Gynecology
PROC: 10E0XZZ Delivery of Products of Conception, External Approach (ICD-10-PCS; principal; 2018-11-27)
PROC: 0HQ9XZZ Repair Perineum Skin, External Approach (ICD-10-PCS; 2018-11-27)
DX: O36.5930 Maternal care for other known or suspected poor fetal growth, third trimester, not applicable or unspecified (principal); O41.03X0 Oligohydramnios, third trimester, not applicable or unspecified; Z37.0 Single live birth; O99.12 Other diseases of the blood and blood-forming organs and certain disorders involving the immune mechanism complicating childbirth; D69.6 Thrombocytopenia, unspecified; O75.89 Other specified complications of labor and delivery; O70.0 First degree perineal laceration during delivery; O99.02 Anemia complicating childbirth; D64.9 Anemia, unspecified; Z3A.37 37 weeks gestation of pregnancy; Z86.19 Personal history of other infectious and parasitic diseases; Z23 Encounter for immunization
CPT/HCPCS: 62322; 76816; 76818; 76820; 80307; 85025; 85610; 85730; 86592; 86850; 86900; 86901; 87340; 90715; G0463; J0690; J2175; J2210; J2405; J2590; J2765; J3010; J7120